=== PATIENT | female | born 1980 | race Two or more races ===

== ENCOUNTER → 2024-05-02 | Outpatient (CLI) | payer BC, MEDICAID, SELFPAY ==
[2024-05-02 09:09] LABS: Collection Type, Urine Clean Catch
[2024-05-02 09:35] LABS: Basophils # (Auto) 0.1 Thou/mm3 (0.0-0.2); Basophils % (Auto) 1 % (0-2.5); Eosinophils # (Auto) 0.1 Thou/mm3 (0.0-0.5); Eosinophils % (Auto) 1 % (0-10); Hematocrit 36.8 % (36.0-46.0); Hemoglobin 11.9 g/dL (12.0-16.0); Immature Granulocytes % (Auto) 0 % (0-0); Immature Granulocytes Auto 0.03 Thou/mm3 (0.00-0.00); Lymphocytes # (Auto) 1.9 Thou/mm3 (1.0-4.8); Lymphocytes % (Auto) 19 % (10-50); Mean Corpuscular HGB Conc 32.3 g/dl (31.0-37.0); Mean Corpuscular Hemoglobin 25.6 pg (25.0-35.0); Mean Corpuscular Volume 79 fL (80-100); Monocytes # (Auto) 0.9 Thou/mm3 (0.0-0.8); Monocytes % (Auto) 9 % (0-12); Neutrophils # (Auto) 7.1 Thou/mm3 (1.8-7.7); Neutrophils % (Auto) 70 % (37-80); Nucleated Red Blood Cell % 0 /100 WBC (0); Platelet Count 409 Thou/mm3 (140-440); RDW Standard Deviation 42.9 fL (36.4-46.3); Red Blood Count 4.65 Miln/mm3 (4.00-5.20); White Blood Count 10.2 Thou/mm3 (3.6-11.0)
[2024-05-02 09:41] LABS: Glucose Estimated Average 151 mg/dL (80-131); Hemoglobin A1C 6.9 % Hgb (4.8-6.0)
[2024-05-02 09:42] LABS: Bacteria,Urine Rare; Bilirubin,Urine Negative (Negative); Blood,Urine Negative (Negative); Clarity,Urine Clear (Clear/Hazy); Color,Urine Lt-Yellow (Lt Yel-Yel); Glucose, Urine 4+ (Negative); Ketones,Urine 1+ (Negative); Leukocyte Esterase,Urine Negative (Negative); Nitrite,Urine Negative (Negative); Protein,Urine Negative (Neg - Trace); RBC,Urine 1 /hpf (0-3); Specific Gravity,Urine 1.038 (1.001-1.035); Squamous Epithelial Cell,Urine 5 /hpf (0-5); Urobilinogen,Urine Negative mg/dL (0.0-1.0); WBC,Urine 1 /hpf (0-5)
[2024-05-02 09:51] LABS: Alanine Aminotransferase 20 U/L (10-49); Albumin, Serum 4.4 gm/dL (3.5-5.0); Albumin/Globulin Ratio 1.6 (1.2-2.2); Alkaline Phosphatase 108 U/L (46-116); Anion Gap 10 (7-16); Aspartate Amino Transferase 14 U/L (0-34); BUN/Creatinine Ratio 27 Ratio (12-20); Bilirubin,Total 0.4 mg/dL (0.3-1.2); Blood Urea Nitrogen 16 mg/dL (9-23); Calcium 9.6 mg/dL (8.3-10.6); Calcium (Corrected) 9.6 mg/dL (8.5-10.1); Carbon Dioxide 24.4 mMol/L (20.0-31.0); Cardiac Risk Estimate 3.2 RATIO (3.7-5.6); Chloride 103 mMol/L (98-107); Cholesterol 190 mg/dL (132-200); Creatinine (Component) 0.6 mg/dL (0.6-1.3); Globulin 2.7 gm/dL (2.3-3.5); Glucose 151 mg/dL (74-106); HDL Cholesterol 60 mg/dL (40-60); LDL Cholesterol,Calculated 105 mg/dL (0-130); Osmolality,Calculated 278 (275-295); Potassium 4.6 mMol/L (3.4-5.1); Sodium 137 mMol/L (136-145); Thyroid Stimulating Hormone 0.79 uIU/mL (0.55-4.78); Total Protein 7.1 gm/dL (5.7-8.2); Triglycerides 127 mg/dL (30-150); eGFR > 60 See Note
[2024-05-02 09:52] LABS: Creatinine MALB Rnd Ur 89 mg/dL (30-125); Microalbumin, Random Urine < 3 mg/L (0-300)
== END | disposition home or self-care (01) ==
PROVIDERS: PCP Internal Medicine; Referring Provider Internal Medicine; Visit Provider Internal Medicine
DX: E11.9 Type 2 diabetes mellitus without complications (principal); I10 Essential (primary) hypertension; E78.5 Hyperlipidemia, unspecified
CPT/HCPCS: 36415; 80053; 80061; 81001; 82043; 82570; 83036; 84443; 85025

== ENCOUNTER → 2024-09-19 | Outpatient (CLI) | payer BC, MEDICAID, SELFPAY ==
[2024-09-19 12:02] LABS: Basophils # (Auto) 0.1 Thou/mm3 (0.0-0.2); Basophils % (Auto) 1 % (0-2.5); Eosinophils # (Auto) 0.1 Thou/mm3 (0.0-0.5); Eosinophils % (Auto) 1 % (0-10); Hematocrit 41.6 % (36.0-46.0); Hemoglobin 13.2 g/dL (12.0-16.0); Immature Granulocytes Auto 0.04 Thou/mm3 (0.00-0.00); Lymphocytes # (Auto) 2.1 Thou/mm3 (1.0-4.8); Lymphocytes % (Auto) 19 % (10-50); Mean Corpuscular HGB Conc 31.7 g/dl (31.0-37.0); Mean Corpuscular Hemoglobin 25.5 pg (25.0-35.0); Mean Corpuscular Volume 81 fL (80-100); Monocytes # (Auto) 0.7 Thou/mm3 (0.0-0.8); Monocytes % (Auto) 7 % (0-12); Neutrophils # (Auto) 7.9 Thou/mm3 (1.8-7.7); Neutrophils % (Auto) 72 % (37-80); Nucleated Red Blood Cell # 0.00 Thou/mm3 (0.00-0.00); Nucleated Red Blood Cell % 0 /100 WBC (0); Platelet Count 382 Thou/mm3 (140-440); RDW Standard Deviation 43.3 fL (36.4-46.3); Red Blood Count 5.17 Miln/mm3 (4.00-5.20); White Blood Count 10.9 Thou/mm3 (3.6-11.0)
[2024-09-19 12:02] LABS: Collection Type, Urine Clean Catch
[2024-09-19 12:25] LABS: Glucose Estimated Average 157 mg/dL (80-131); Hemoglobin A1C 7.1 % Hgb (4.8-6.0)
[2024-09-19 12:26] LABS: Bilirubin,Urine Negative (Negative); Blood,Urine Negative (Negative); Clarity,Urine Clear (Clear/Hazy); Color,Urine Lt-Yellow (Lt Yel-Yel); Glucose, Urine 4+ (Negative); Ketones,Urine 2+ (Negative); Leukocyte Esterase,Urine Negative (Negative); Nitrite,Urine Negative (Negative); PH,Urine 5.5 (5.0-7.0); Protein,Urine Negative (Neg - Trace); RBC,Urine 1 /hpf (0-3); Specific Gravity,Urine 1.034 (1.001-1.035); Squamous Epithelial Cell,Urine 10 /hpf (0-5); Urobilinogen,Urine Negative mg/dL (0.0-1.0); WBC,Urine 1 /hpf (0-5)
[2024-09-19 12:29] LABS: Vitamin B12 746 pg/mL (211-911); Vitamin D 25 Hydroxy Total 52.3 ng/mL (7.3-40.2)
[2024-09-19 12:30] LABS: Creatinine MALB Rnd Ur 98 mg/dL (30-125); Creatinine,Random Urine 98 mg/dL (30-125); Microalbumin Creat Ratio 5 mg/gCrea (<30); Microalbumin, Random Urine 5 mg/L (0-300)
[2024-09-19 12:31] LABS: Alanine Aminotransferase 13 U/L (10-49); Albumin, Serum 4.5 gm/dL (3.5-5.0); Albumin/Globulin Ratio 1.5 (1.2-2.2); Alkaline Phosphatase 71 U/L (46-116); Anion Gap 13 (7-16); Aspartate Amino Transferase 15 U/L (0-34); BUN/Creatinine Ratio 17 Ratio (12-20); Bilirubin,Total 0.4 mg/dL (0.3-1.2); Blood Urea Nitrogen 12 mg/dL (9-23); Calcium 9.1 mg/dL (8.3-10.6); Calcium (Corrected) 9.1 mg/dL (8.5-10.1); Carbon Dioxide 22.2 mMol/L (20.0-31.0); Cardiac Risk Estimate 3.5 RATIO (3.7-5.6); Chloride 104 mMol/L (98-107); Cholesterol 161 mg/dL (132-200); Creatinine (Component) 0.7 mg/dL (0.6-1.3); Free T4 (Free Thyroxine) 1.28 ng/dL (0.89-1.76); Globulin 3.0 gm/dL (2.3-3.5); Glucose 112 mg/dL (74-106); HDL Cholesterol 46 mg/dL (40-60); LDL Cholesterol,Calculated 81 mg/dL (0-130); Osmolality,Calculated 278 (275-295); Potassium 3.8 mMol/L (3.4-5.1); Sodium 139 mMol/L (136-145); Thyroid Stimulating Hormone 0.77 uIU/mL (0.55-4.78); Total Protein 7.5 gm/dL (5.7-8.2); Triglycerides 172 mg/dL (30-150); Uric Acid 4.3 mg/dL (3.1-7.8); eGFR > 60 See Note
[2024-09-19 12:41] LABS: CA 125 16.0 U/mL (<30.2)
== END | disposition home or self-care (01) ==
PROVIDERS: PCP Internal Medicine; Referring Provider Internal Medicine; Visit Provider Internal Medicine
DX: Z00.00 Encounter for general adult medical examination without abnormal findings (principal); E11.9 Type 2 diabetes mellitus without complications; I11.0 Hypertensive heart disease with heart failure; E55.9 Vitamin D deficiency, unspecified
CPT/HCPCS: 36415; 80053; 80061; 81001; 82043; 82306; 82570; 82607; 83036; 84439; 84443; 84550; 85025; 86304

== ENCOUNTER → 2024-11-26 | Outpatient (CLI) | payer BC, MEDICAID, SELFPAY ==
--- NOTE | 2024-11-26 14:45 | XR_ITS ---
Examination: Screening digital mammography, bilateral Computer aided detection 3-D breast Tomosynthesis, bilateral Date and time of exam: November 26, 2024 1426 hours, comparison September 20, 2020 Indication: Screening Technique: Nonmagnified MLO, CC views of the breasts to been obtained, reconstructed from 3-D Tomosynthesis images. R2 computer aided detection program utilized for evaluation of suspicious masses and/or abnormal calcifications. 3-D Tomosynthesis images obtained. Findings: The breasts are heterogeneously dense, which may obscure small masses 32 mm focal asymmetry 12:00 position left breast Impression: BI-RADS Category 0: Incomplete: Need additional imaging evaluation Recommend follow-up spot tomographic views of 13 mm focal asymmetry 12:00 position left breast as well as bilateral breast sonography to complete the workup
== END | disposition home or self-care (01) ==
LOC: CDIM 14:13
PROVIDERS: PCP Internal Medicine; Referring Provider Internal Medicine; Visit Provider Internal Medicine
DX: Z12.31 Encounter for screening mammogram for malignant neoplasm of breast (principal); N64.89 Other specified disorders of breast; R92.8 Other abnormal and inconclusive findings on diagnostic imaging of breast
CPT/HCPCS: 77063; 77067

== ENCOUNTER → 2025-01-13 | Outpatient (CLI) | payer BC, MEDICAID, SELFPAY ==
--- NOTE | 2025-01-13 | XR_ITS ---
Examination: Transvaginal ultrasound of the pelvis, complete Technique: Transvaginal sonographic images pelvis performed using alonzo scale imaging Exam date and time: January 13, 2025, 1625 hours INDICATIONS: Irregular menses beginning 6 months ago FINDINGS: Uterus 9.4 cm uterine posterior fundal artery fibroid degeneration 4.4 x 3.8 x 4.4 cm Endometrial stripe 10 mm Right ovary obscured by bowel gas Left ovary 2.7 cm arterial flow Probable hemorrhagic cyst left ovary 15 x 13 x 17 mm IMPRESSION: Uterine fundal area fibroid degeneration 4.4 x 3.8 x 4.4 cm Probable left ovarian hemorrhagic cyst 15 x 13 x 17 mm Recommend 6-month follow-up transvaginal pelvic sonography.
--- NOTE | 2025-01-13 15:45 | XR_ITS ---
Examination: Pelvic ultrasound, transabdominal, complete Technique: Transabdominal ultrasound of the pelvis performed using grayscale imaging Date and time of exam: January 13, 2025, 1618 hours INDICATIONS: Irregular menses 4 months FINDINGS: Uterus 10.0 cm uterine posterior fundal area fibroid degeneration 3.9 x 3.3 x 4.1 cm Endometrial stripe 0.6 cm Right ovary 2.5 cm arterial flow 12 mm follicular cyst Left ovary obscured by bowel gas IMPRESSION: Uterine fundal area fibroid degeneration 3.9 x 3.3 x 4.1 cm, consider 6-month follow-up transvaginal pelvic sonography
--- NOTE | 2025-01-13 15:45 | XR_ITS ---
Examination: Abdomen sonogram, complete Date and time of exam: January 13, 2025, 1557 hours INDICATIONS: Onset right lower abdominal pain beginning 1 year ago.. Technique: Multiple real-time grayscale transabdominal sonographic images of the abdomen have been obtained. Findings: Normal gallbladder. Normal common bile duct 0.3 cm. Pancreatic head 2.8 cm Aorta not enlarged. Liver 15.9 cm fatty infiltration Normal hepatopetal portal venous flow Patent IVC Right kidney 12.2 cm renal cortex 2.5 cm Left kidney 11.3 cm renal cortex 1.9 cm Mild renal scar formation Spleen 10.9 cm IMPRESSION: Normal gallbladder Liver normal size fatty infiltration
== END | disposition home or self-care (01) ==
LOC: CDIM 15:32
PROVIDERS: PCP Internal Medicine; Referring Provider Internal Medicine; Visit Provider Internal Medicine
DX: K76.0 Fatty (change of) liver, not elsewhere classified (principal); D25.9 Leiomyoma of uterus, unspecified
CPT/HCPCS: 76700; 76830; 76856

== ENCOUNTER 2025-02-19 14:28 | Outpatient (AMB) | payer BC, MEDICAID, SELFPAY ==
--- NOTE | 2025-02-19 14:46 | AMB.GYNCLNOT ---
Vital Signs 02/19/25 14:54 Weight 86.835 kg Weight Measurement Method Standing Scale BP 151/91 H Blood Pressure Source Automatic Cuff Blood Pressure Location Left Upper Arm Position Sitting Respiration 18 Pulse 80 Pulse Source Monitor Temp 98.2 F Temp Source Oral Pulse Oximetry (%) 98 Oxygen Delivery Method Room Air Allergies/Home Meds Allergies & Medications Allergies triamcinolone Allergy (Mild, Verified 02/19/25 14:55) TONGUE SWELLING Medication Reconciliation Canagliflozin/Metformin HCl (Invokamet 150-1,000 mg Tablet) 1 tab PO QDAY #0 tabs 08/12/16 [History Confirmed 02/19/25] benzonatate 100 mg capsule 200 mg (2 x 100 mg) PO TID PRN cough #30 caps 06/02/18 [Rx Confirmed 02/19/25] codeine 10 mg-guaifenesin 100 mg/5 mL oral liquid (Cheratussin AC) 5 ml PO Q6H PRN cough #120 mL 06/02/18 [Rx Confirmed 02/19/25] ibuprofen 800 mg tablet 800 mg PO TID PRN pain #20 tabs 06/02/18 [Rx Confirmed 02/19/25] fluconazole 150 mg tablet (Diflucan) 150 mg PO QDAY #2 tabs 08/23/20 [Rx Confirmed 02/19/25] indomethacin 50 mg capsule 50 mg PO BID #60 caps 07/22/22 [Rx Confirmed 02/19/25] indomethacin 50 mg capsule 50 mg PO BID #30 caps 07/23/22 [Rx Confirmed 02/19/25] Intake Visit Data Collection New Patient or Established: Established Patient (seen at [facility] within 3 years) 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 by Clinical Staff ONLY (RN/MA): No Foot Press Operator Required: No Do You Feel Safe at Home: Yes Authorities Contacted: N/A PCP or OBGYN visit in last 3 months: Yes Date of Last PCP or OBGYN visit: 07/22/24 Hx Now: No Are you currently on any form of Control: No Last menstrual period: 02/11/25 Pain Present Currently: No Pain Scale Used: Borges-Valencia/Numerical Pain scale:: 0 Smoking Status Smoking Status: Never smoker Immunizations Flu Vaccine in the Last 12 Months: No Flu Vaccine Exclusion Criteria: No Exclusion Criteria 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 1. Little interest or pleasure in doing things: not at all 2. Feeling down, depressed, or hopeless: not at all Total score: 0 PHQ-9 3. Trouble falling or staying asleep, or sleeping too much: Not at all 4. Feeling tired or having little energy: Not at all 5. Poor appetite or overeating: Not at all 6. Feeling bad about yourself - or that you are a failure or have let yourself or your family down: Not at all 7. Trouble concentrating on things, such as reading the newspaper or watching television: Not at all 8. Moving or speaking so slowly that other people could have noticed? - Or the opposite - being so fidgety or restless that you have been moving around a lot more than usual: not at all 9. Thoughts that you would be better off or of hurting yourself in some way: Not at all Total score: 0 If you checked off any problems, how difficult have these problems made it for you to do your work, take care of things at home, or get along with other people?: not difficult at all Source: Developed by Drs. Sp Kumar, Maci Block, Antoni Weaver and colleagues, with an educational huong from [employer]. Social History Living Situation History Marital Status: Single Lives With: Family Housing: House Tobacco History Smoking Status: Never smoker Second Hand Smoke Exposure: No Alcohol History Alcohol Intake: Never Domestic Abuse History Do You Feel Safe at Home: Yes History of Present Illness HPI Narrative Prolonged periods lasting up to 15-plus days starting around May 2019, heavy clotting and prolonged periods for about a year, abnormal findings on the uterus Reyna Mac is a 5 para [id number] with a history of type 2 diabetes mellitus and hypertension presenting for consultation regarding prolonged periods and abnormal uterine findings. The patient reports that her periods have been lasting up to 15-plus days, with this pattern starting around May 22, 2019. She describes experiencing heavy clotting and prolonged periods for approximately one year, with significant bleeding and clotting. The patient reports associated pain with her heavy periods. She is currently managed for her diabetes and hypertension with lisinopril, Farxiga, and Mounjaro. The patient states she is not planning more pregnancies. Medical History: - Type 2 diabetes mellitus - Hypertension Obstetric History: - GPAL: A0 L4 - Not currently - The patient is not planning more pregnancies Medications: - Lisinopril for hypertension - Farxiga for type 2 diabetes mellitus - Mounjaro for type 2 diabetes mellitus Social History: - , lives with Diagnostic Test Results and Labs: - Pelvic ultrasound (trans-abdominal and transvaginal) (03-25-2024): Uterus 10 cm with posterior fundal fibroid degeneration measuring 3.9 x 3.3 x 4.1 cm, endometrial stripe 0.6 cm, right ovary 2.5 cm with 12 mm follicular cyst, left ovary obscured by gas on trans-abdominal view with possible hemorrhagic cyst noted on transvaginal view - Abdominal ultrasound (03-25-2024): Within normal limits except for mild kidney scar formation Exam General General Appearance: alert, in no apparent distress and healthy appearing Head Head exam: atraumatic Neck Neck exam: Present normal inspection and trachea midline Chest Chest inspection: Present normal inspection and symmetric chest wall rise External exam: Present normal external exam; Absent tenderness Neuro Neurological exam: Present oriented X3 Psych Psychiatric exam: Present normal affect and normal mood Office Procedures [facility] LOC & Office Proc's Nursing/Assessment Patient Status: Established Patient OB Clinic Nursing Assessment: Medication Reconciliation, Update PMH in EMR and Vital Signs OB Clinic Coordination of Care: Consent,records obtained, informed consent, Education Simp Pt/Fam, Lab and Imaging orders, Results/Orders obtained and Staff clarify orders Established Patient Charge Established Patient Point Assignment: 80 Established Patient Point Charge: EP Level 3 (80-115) Assessment & Plan Diagnosis / Problem List (1) Intramural leiomyoma of uterus: Status: Acute Plan Prolonged menorrhagia with uterine fibroid Assessment: Patient presents with prolonged periods lasting up to 15-plus days with heavy clotting for approximately one year. Pelvic ultrasound from March 25, 2024 reveals a 10 cm uterus with a posterior fundal fibroid measuring 3.9 x 3.3 x 4.1 cm showing degeneration, endometrial stripe of 0.6 cm, right ovary 2.5 cm with 12 mm follicular cyst, and possible hemorrhagic cyst in left ovary. The fibroid is causing the patient's symptoms of prolonged heavy periods with significant bleeding, clotting, and pain. Patient is not planning future pregnancies. Plan: - Discussed treatment options including medication versus surgical interventions - Recommended supra-cervical hysterectomy with removal of uterus and fallopian tubes while preserving cervix and ovaries - Explained benefits: cessation of periods, maintained sexual function, reduced prolapse risk - Patient prefers hysterectomy over fibroid removal alone due to high recurrence rate - Surgery tentatively scheduled for early April - Advised patient to discuss with before proceeding - Informed of recovery time approximately one month with driving permitted after 10 days - Patient agreed to proceed and will be contacted for scheduling Type 2 diabetes mellitus Assessment: Patient has established diagnosis of type 2 diabetes mellitus currently managed with Farxiga and Mounjaro. Plan: - Continue current diabetic medications Farxiga and Mounjaro Hypertension Assessment: Patient has established diagnosis of hypertension currently managed with lisinopril. Plan: - Continue lisinopril for blood pressure management
[2025-02-19 14:54] VITALS: BP 151/91; PULSE 80; RESP 18; TEMP 36.8; O2SAT 98
== END 2025-02-19 15:44 | disposition home or self-care (01) ==
PROVIDERS: PCP Internal Medicine; Referring Provider Internal Medicine; Supervising Provider Obstetrics & Gynecology; Visit Provider Obstetrics & Gynecology
DX: D25.1 Intramural leiomyoma of uterus (principal); E11.9 Type 2 diabetes mellitus without complications; I10 Essential (primary) hypertension; Z79.84 Long term (current) use of oral hypoglycemic drugs; Z79.899 Other long term (current) drug therapy; Z88.8 Allergy status to other drugs, medicaments and biological substances
CPT/HCPCS: 99213; G0463